=== PATIENT | female | born 1940 | race Caucasian/White ===

== ENCOUNTER → 2021-05-18 | Outpatient (CLI) | payer MEDICARE ==
[~2021-05-18] MED LIST: ASPIRIN 325MG325 MG PO; CALTRATE 600+D1 EAC1 PO; CELEBREX 200MG200 MG PO; CENTRUM SILVER1 EAC1 PO; COZAAR50 MG PO; CRESTOR10 MG PO; ECOTRIN81 MG PO; IBUPROFEN200 M1 PO; IBUPROFEN600 MG PO; IBUPROFEN800 MG PO; KEFLEX CAP 500500 MG PO; MINIVELLE1 EAC2 TD; NAPROSYN500 MG PO; NITROSTAT0.4 MG SL; NORCO 10-325 T1 EACH PO; NORCO 7.5-3251 EACH PO; PHENERGAN 25 MG25 M1 PO; PRINIVIL5 MG PO; RANEXA500 MG PO; SENNA S TABLET1 EACH PO; SIMVASTATIN20 MG PO; VITAMIN C 500500 MG PO; VITAMIN D350000 UNIT PO
== END ==
LOC: HEART CORB 09:45
DX: I25.10 Atherosclerotic heart disease of native coronary artery without angina pectoris (principal); R07.2 Precordial pain
CPT/HCPCS: 78452; A9502; J2785